=== PATIENT | male | born 1940 | race Caucasian/White ===

== ENCOUNTER → 2020-03-06 | Outpatient (CLI) | payer OTHER ==
[~2020-03-06] VITALS: Ht 175.3 cm; Wt 74.8 kg
[~2020-03-06] MED LIST: ASPIR 8181 M1 PO; CALCIUM + D SO1 EACH PO; CELEBREX 200 M200 M1 PO; DONEPEZIL HCL 55 MG PO; DOXYCYCLINE 10100 M2 PO; LASIX 40 MG TAB40 MG PO; LOSARTAN-HCTZ1 EAC3 PO; POTASSIUM20 PO; VITAMIN B-12500 MCG PO
[2020-03-06 15:08] VITALS: BP 153/88
--- NOTE | 2020-03-06 15:26 | NUR ---
Pain Clinic Assessment: 1. History of Osteoarthritis: HANDS History of Rheumatoid Arthritis: DENIES 2. Height: 5 ft. 9 in. 175.3 cm. Weight: 165.0 lb. oz. 74.844 kg. Patient's BMI: 24.4 3. Vital Signs: BP: 153/88 Pulse: 67 Resp: 14 Temp: 02 Sat: 100 ECG Mon: 4. Pain Intensity: 9 5. Fall Risk: Dizziness: N Needs help standing or walking: N Fallen in the last 3 months: Y Fall risk comments: 6. Patient on Blood Thinner: None 7. History of Hypertension: N 8. Opioid Therapy greater than 6 weeks: N Opiate Contract Signed: 9. Risk Assessment Tool Provided: 10. Functional Assessment Tool: 11. Recreational Drug Use: Never Drug Type: Tobacco Use: Never Smoker Tobacco Type: Amount or Packs/day: How Many Years: Alcohol Use: Yes Frequency: Daily Quant: 2
--- NOTE | 2020-03-20 09:14 | P ---
[facility] [place] [address] PROCEDURE REPORT Name: LOIDA BERNSTEIN Room #: REG Zeferino Meza#: [id number] Admission: 03/06/20 Attend Phys: Kingsley Lopez DO Discharge: Date of : 40 Report #: [id number] THIS REPORT FOR: cc: LAMAR MARTINEZ Physician not on staff Kingsley Lopez DO ~ DATE OF SERVICE: 03/06/2020 PROCEDURE NOTE DESCRIPTION OF PROCEDURE: L4-L5 interlaminar epidural steroid injection under fluoroscopic guidance. This is the first procedure of the first series that the patient is undergoing. After obtaining written consent, the patient was taken back to the fluoroscopy suite, placed in a prone position with pillow under the abdomen to decrease lumbar lordosis. The skin overlying the lumbosacral area was then prepped and draped in aseptic fashion. The L4-L5 vertebral interspace was then identified by AP fluoroscopy. The skin and subcutaneous tissue overlying the target site of injection was anesthetized with 3 mL 1% lidocaine. A 20-guage 3-1/2 inch Tuohy needle was then advanced under fluoroscopic guidance towards the epidural space using a parasagittal approach. The epidural space was identified using loss of resistance to air technique. After negative aspiration for heme or cerebrospinal fluid, a total of 1 mL of Omnipaque was injected. A lumbar epidurogram was confirmed using both AP and lateral fluoroscopy. After negative aspiration for heme or cerebrospinal fluid, 5 mL of a solution containing 2 mL 40 mg per mL, 80 mg total triamcinolone along with 3 mL of lidocaine 1% injected in increments. Contrast spread was noted in posterior epidural space. The needle was then retracted approximately half way and needle tract flushed with 1 mL of 1% lidocaine. Needle was then removed. There were no apparent sensory or motor deficits in the lower extremity following the procedure. A sterile bandage was placed over the injection site. The heart rate, pulse, oximetry and blood pressure were continuously monitored after the procedure. There were no complications. The patient tolerated the procedure well and was carefully escorted to the recovery room in stable condition. There were no apparent complications. After meeting discharge criteria, the patient was then discharged home. <ELECTRONICALLY SIGNED> By: Kingsley Lopez DO 03/20/2014 Kingsley Lopez DO /nt
--- NOTE | 2020-03-20 09:14 | HPC ---
[facility] [address] [place] [address] PAIN MANAGEMENT CONSULTATION Name: LOIDA BERNSTEIN Room #: REG CARRIE Derrick#: [id number] Admission: 03/06/20 Attend Phys: Kingsley Lopez DO Discharge: Date of : 40 Report #: [id number] THIS REPORT FOR: cc: LAMAR MARTINEZ Physician not on staff Kingsley Lopez DO ~ DATE OF SERVICE: 03/06/2020 CHIEF COMPLAINT: Low back pain, bilateral lower extremity pain with paresthesias. HISTORY OF PRESENT ILLNESS: As you know, the patient is a very pleasant 80-year-old male who has been referred to our service due to lumbar radiculopathy secondary to progressively worsening spinal stenosis. 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 He has been referred to our clinic to trial a lumbar epidural injection under fluoroscopic guidance in hopes of improving pain. The patient reports his pain began spontaneously after doing work around his home where he was stacking hay. Apparently, the angelia of hay weighed anywhere from 60-70 pounds. He put away over 300 bale before his symptoms began. He has been trialing conservative treatment options, rest, relaxation and medication management without benefit. He is referred to our clinic to discuss interventional treatments. The patient indicates today his pain is continuous. He describes his pain as achy, sharp, numbness, tingling and weakness in sensation. He is placing current pain score 10/10, daily average anywhere from 8-10/10, worst pain has been is 10/10. The patient states that any movement exacerbates symptoms, the use of oxycodone has provided only minimal benefit. He has been referred to our service to discuss treatment options for lumbar radiculopathy. PAST MEDICAL HISTORY: 1. Osteoarthritis. 2. Hypertension. 3. Memory issues. 4. Chronic low back pain. PAST SURGICAL HISTORY: See chart. SOCIAL HISTORY: The patient denies tobacco, alcohol, IV or illicit drug use. 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 He is accompanied by his , present in the room today. IMAGING: MRI of the lumbar spine shows severe near critical central canal stenosis at L3-L4 and L4-L5, multilevel facet arthropathy. [address] [address] PAIN MANAGEMENT CONSULTATION Name: LOIDA BERNSTEIN Room #: REG [facility].#: [id number] Admission: 03/06/20 Attend Phys: Kingsley Lopez DO Discharge: Date of : 40 Report #: [id number] ALLERGIES: No known drug allergies. CURRENT MEDICATIONS: Losartan/hydrochlorothiazide 100/25 once a day, dicyclomine ____ mg once a day, potassium chloride 20 mEq p.o. daily, ____ 5 mg once a day, aspirin 81 mg per day, calcium carbonate 1 tab per day, Lasix 40 mg once a day, cyanocobalamin 500 mcg once a day, celecoxib 200 mg twice a day. REVIEW OF SYSTEMS: Positive only for bleeding and bruising tendencies, chronic low back pain, hypertension, memory loss. All other review of systems negative per 12-point review of systems other than those listed in history of present illness. Pain impact score is 50/70 indicating severe interference of daily activities secondary to pain. PQRS: The patient has known arthritic changes of the cervical spine, lumbar spine, bilateral hands and hips and knees. No rheumatoid arthritis. He is placing current pain score at 9-10/10. He is not a fall risk, but has had multiple falls in the last 3 months, these are due to incidences around his home. He is not on blood thinners. He is treated for hypertension. He is not on chronic opioids, has a low opioid addiction potential. Pain impact score of 50/70 indicating severe interference of daily activities secondary to pain. PHYSICAL EXAMINATION: VITAL SIGNS: Blood pressure 153/88, pulse 67, respiratory rate 14 and unlabored. The patient is 100% on room air. Height 5 feet 9 inches tall, weight 165 pounds, BMI calculated 24.4. GENERAL: Well-developed, well-nourished, well-hydrated kyphotic 80-year-old male, appearing stated age, pain is rated today 9-10/10. HEENT: Normocephalic, atraumatic. Pupils equal, round and reactive. NEUROLOGIC: Speech is fluent. The patient deemed a good historian. LUNGS: Clear. No wheeze, rhonchi, no rales. CARDIOVASCULAR: Regular. No appreciable gallop, no rub. ABDOMEN: Soft and normoactive bowel sounds. EXTREMITIES: Show no clubbing, no cyanosis, no edema. MUSCULOSKELETAL: Lower extremity strength is weakened bilaterally with strength rated at about 4-1/2 over 5. There is giveaway strength noted with hip flexion and knee extension bilaterally due to pain generation. Seated straight leg raising positive. Supine straight leg raising positive. Arabella's test is negative. Modified Gaenslen's positive for axial low back pain. Ankle clonus negative. Babinski is negative. Deep tendon reflexes are symmetrical, but diminished bilaterally at the patella and Achilles. Gait is severely antalgic. There is noted neurogenic claudication with walking distance. ASSESSMENT: 1. Lumbar radiculopathy. 2. Severe near critical central canal stenosis. 3. Displacement of lumbar intervertebral disk with radiculopathy. [facility] [address] [place] [address] PAIN MANAGEMENT CONSULTATION Name: LOIDA BERNSTEIN Room #: VAL CARRIE Meza#: [id number] Admission: 03/06/20 Attend Phys: Kingsley Lopez DO Discharge: Date of : 40 Report #: [id number] 4. Lumbosacral spondylosis with radiculopathy. 5. Neural foraminal stenosis of lumbar spine. 6. Facet arthropathy of the lumbar spine. 7. Chronic intractable pain. PLAN: 1. Based on today's physical exam and history the patient has provided, the description the patient uses in regards to pain as well as location of symptoms, likely source of the patient's pain is lumbar radiculopathy secondary to central canal stenosis. This is confirmed with his MRI, which shows changes at the L3-L4 and L4-L5 level consistent with the patient's distribution. We discussed with the patient the treatment options we have available for central canal stenosis. The following was discussed with the patient today. We discussed physical therapy, stretching exercises and core strengthening as a treatment option. We discussed medication management utilizing neuropathic pain medication such as amitriptyline, nortriptyline, Cymbalta, Lyrica or gabapentin. We discussed lumbar epidural injections under fluoroscopic guidance for which the patient was referred to our clinic. We also discussed surgical options including spinal cord stimulator therapy and traditional decompression. After reviewing the risks and benefits of all proposed treatment options, the patient chose to undergo lumbar epidural injection. The patient was advised risks and benefits of a lumbar epidural injection. These risks include but are not necessarily limited to bleeding, bruising, infection, worsening pain, no relief of pain, also risk of temporary or permanent muscle weakness, temporary or permanent nerve damage, possible paralysis and . The patient states he understood and wished to proceed. 2. No medication changes made at today's visit. The patient will continue current medical therapy as previously prescribed. 3. We will see the patient back in followup visit on an as needed basis for possible next in the series of lumbar epidural injections. We are hopeful the patient will see good and prolonged benefit with today's epidural injection. <ELECTRONICALLY SIGNED> By: Kingsley Lopez DO 03/20/20 [id number] Kingsley Lopez DO /nt
== END | disposition home or self-care (01) ==
LOC: PAIN 07:03
PROVIDERS: ATTEND Anesthesiology Pain Medicine
DX: M54.16 Radiculopathy, lumbar region (principal); G89.29 Other chronic pain; I10 Essential (primary) hypertension; I51.9 Heart disease, unspecified; Z98.890 Other specified postprocedural states; Z96.651 Presence of right artificial knee joint; Z96.612 Presence of left artificial shoulder joint; Z79.01 Long term (current) use of anticoagulants; Z95.2 Presence of prosthetic heart valve; Z79.899 Other long term (current) drug therapy